=== PATIENT | female | born 1965 | race Caucasian/White ===

== ENCOUNTER 2017-04-27 08:20 | Emergency (ER) | payer OTHER ==
[~2017-04-27] VITALS: Ht 165.1 cm; Wt 70.0 kg
[~2017-04-27 08:20] MED LIST: AVELOX400 MG OR; NAPROSYN500 MG OR; no homemeds
[2017-04-27] MEDS ORDERED: CLINDAMYCIN300 M1 PO (09:16)
[2017-04-27 09:38] VITALS: BP 141/81
== END 2017-04-27 09:42 | disposition home or self-care (01) | DRG 153 ==
LOC: ED 08:20
DX: J06.9 Acute upper respiratory infection, unspecified (principal); J02.9 Acute pharyngitis, unspecified; R09.81 Nasal congestion; R09.89 Other specified symptoms and signs involving the circulatory and respiratory systems; R50.9 Fever, unspecified

== ENCOUNTER 2019-02-12 07:19 | Emergency (ER) | payer BC ==
[~2019-02-12] VITALS: Ht 165.1 cm; Wt 57.0 kg
[~2019-02-12 07:19] MED LIST changes: +CLINDAMYCIN300 M1 PO
[2019-02-12] MEDS ORDERED: ROBITUSSIN AC10 ML PO (08:30)
[2019-02-12 08:32] VITALS: BP 123/82
== END 2019-02-12 08:47 | disposition home or self-care (01) | DRG 153 ==
LOC: ED 07:19
DX: J02.9 Acute pharyngitis, unspecified (principal)

== ENCOUNTER 2020-07-26 | Emergency (ER) | payer OTHER ==
[~2020-07-26] MED LIST changes: +ROBITUSSIN AC10 ML PO
[2020-07-27] MEDS ORDERED: MOTRIN400 MG/TAB PO (00:41)
== END 2020-07-27 01:02 | disposition home or self-care (01) | DRG 563 ==
DX: S93.401A Sprain of unspecified ligament of right ankle, initial encounter (principal); X50.0XXA Overexertion from strenuous movement or load, initial encounter; Y93.89 Activity, other specified; Y92.009 Unspecified place in unspecified non-institutional (private) residence as the place of occurrence of the external cause

== ENCOUNTER 2022-10-03 16:35 | Emergency (ER) | payer BC ==
[~2022-10-03] VITALS: Ht 165.1 cm; Wt 80.2 kg
[~2022-10-03 16:35] MED LIST changes: +MOTRIN400 MG/TAB PO
[2022-10-03 16:47] VITALS: BP 144/85
[2022-10-03 17:30] VITALS: BP 134/67
[2022-10-03 17:45] VITALS: BP 127/69
[2022-10-03 18:00] VITALS: BP 136/70
[2022-10-03 18:15] LABS: URINE BILIRUBIN - DIPSTICK NEGATIVE (NEGATIVE); URINE BLOOD DIPSTICK NEGATIVE (NEGATIVE); URINE COLOR YELLOW; URINE GLUCOSE - DIPSTICK NEGATIVE (NEGATIVE); URINE KETONE NEGATIVE (NEGATIVE); URINE LEUK ESTERASE TRACE (NEGATIVE); URINE PH 6.5 (4.5-8.0); URINE PROTEIN - DIPSTICK NEGATIVE (NEG-TRACE)
[2022-10-03 18:16] LABS: BASO% 0.2 % (0-3); HEMATOCRIT 41.4 % (37.0-47.0); HEMOGLOBIN 13.7 g/dl (12.0-16.0); IMMATURE GRANULOCYTES 0.2 % (0.0-5.0); LYMPH% 22.6 % (15-41); MEAN CELL VOLUME 90.8 fL CALC (80.0-100.0); MEAN CORPUSCULAR HGB CONC 33.1 g/dL CAL (32.0-36.0); MONO% 7.4 % (2-13); NEUT# 5.77 thou/uL (2.00-7.15); NEUT% 67.6 % (42-76); RED BLOOD COUNT 4.56 mill/uL (4.20-5.60); RED CELL DISTRI WIDTH 12.8 % (11.5-15.5)
[2022-10-03 18:16] LABS: URINE NITRITE - DIPSTICK NEGATIVE (Negative)
[2022-10-03 18:26] LABS: ALBUMIN 4.6 g/dL (3.2-5.0); ALKALINE PHOSPHATASE 108 u/l (38-126); ANION GAP 13 (6-22 (CALC)); BUN 16 mg/dL (7-17); BUN/CREATININE RATIO 22 (12-20 (CALC)); CARBON DIOXIDE 28 mmol/l (22-30); CHLORIDE 104 mmol/l (95-108); CREATININE 0.7 mg/dL (0.5-1.0); GFR FOR AFR.AMER. > 60 ML/MIN (>=60 (CALC)); GFR OTHER RACES > 60 ML/MIN (>=60 (CALC)); POTASSIUM 4.5 mmol/l (3.5-5.1); SGOT/AST 25 u/l (14-36); SODIUM 140 mmol/l (137-146); TOTAL PROTEIN 7.4 g/dL (6.3-8.2)
[2022-10-03 18:29] LABS: BILIRUBIN, TOTAL 0.9 mg/dL (0.02-1.3)
[2022-10-03 19:45] VITALS: BP 136/70
== END 2022-10-03 19:45 | disposition left against medical advice (07) | DRG 392 ==
LOC: ED 16:35
PROVIDERS: Family Medicine
DX: R10.2 Pelvic and perineal pain (principal); Z53.29 Procedure and treatment not carried out because of patient's decision for other reasons

== ENCOUNTER 2024-05-06 04:18 | Inpatient (IN) | payer BC ==
[~2024-05-06] VITALS: Ht 165.1 cm; Wt 80.0 kg
[2024-05-06] VITALS (21 sets, daily range): BP systolic 135–187; BP diastolic 72–93
--- NOTE | 2024-05-06 04:23 | NUR ---
patient to room 8 via ems.
[2024-05-06] MEDS ORDERED: MORPHINE SULFATE 4 MG/ML VIAL IV ONE (04:50)
[2024-05-06] MEDS ORDERED: ONDANSETRON HCl 4 MG/2 ML SDV IV ONE (04:50)
[2024-05-06 05:17] LABS: BASO% 0.2 % (0-3); EOS% 0.1 % (0-8); HEMATOCRIT 43.6 % (37.0-47.0); HEMOGLOBIN 14.6 g/dl (12.0-16.0); IMMATURE GRANULOCYTES 0.7 % (0.0-5.0); LYMPH% 4.9 % (15-41); MEAN CELL VOLUME 90.5 fL CALC (80.0-100.0); MEAN CORPUSCULAR HGB 30.3 pG CALC (26.0-32.0); MEAN CORPUSCULAR HGB CONC 33.5 g/dL CAL (32.0-36.0); MONO% 3.9 % (2-13); NEUT# 10.9 thou/uL (2.00-7.15); NEUT% 90.2 % (42-76); RED BLOOD COUNT 4.82 mill/uL (4.20-5.60); RED CELL DISTRI WIDTH 12.8 % (11.5-15.5)
[2024-05-06 05:33] LABS: ALBUMIN 4.8 g/dL (3.2-5.0); CREATININE 0.7 mg/dL (0.5-1.0); POTASSIUM 4.2 mmol/l (3.5-5.1); TOTAL PROTEIN 7.8 g/dL (6.3-8.2)
[2024-05-06 05:34] LABS: BILIRUBIN, TOTAL 1.5 mg/dL (0.02-1.3)
--- NOTE | 2024-05-06 06:09 | NUR ---
EDP NOTIFIED THAT PATIENT STILL REPORTS SHE IS IN PAIN
[2024-05-06] MEDS ORDERED: HYDROmorphone HCL 2 MG/AMP IV ONE (06:15)
--- NOTE | 2024-05-06 07:22 | NUR ---
Reassessment of patient completed. No distress noted.
--- NOTE | 2024-05-06 08:15 | NUR ---
Reassessment of patient completed. No distress noted.
[2024-05-06 09:35] LABS: URINE BILIRUBIN - DIPSTICK Negative (NEGATIVE); URINE BLOOD DIPSTICK Negative (NEGATIVE); URINE GLUCOSE - DIPSTICK Negative (NEGATIVE); URINE KETONE Negative (NEGATIVE); URINE LEUK ESTERASE Trace (NEGATIVE); URINE NITRITE - DIPSTICK Negative (Negative); URINE PH 5.5 (4.5-8.0); URINE PROTEIN - DIPSTICK 30 mg/dL (NEG-TRACE); URINE SPECIFIC GRAVITY 1.015; URINE UROBILINOGEN - DIPSTICK 0.2 E.U./dL (0.2)
[2024-05-06 09:41] LABS: URINE COLOR Yellow
[2024-05-06 09:49] LABS: URINE EPITHELIAL CELLS MODERATE EPI/hpf (0-FEW); URINE MUCUS FEW hpf (NONE-FEW); URINE WBC 0-2 WBC/hpf (0-5)
--- NOTE | 2024-05-06 10:12 | NUR ---
FAMILY REMAINS BEDSIDE WITH PATIENT
[2024-05-06] MEDS ORDERED: MAGNESIUM HYDROXIDE 30 ML UDC PO PRN (10:25)
[2024-05-06] MEDS ORDERED: ACETAMINOPHEN 325 MG/TAB PO PRN (10:25)
[2024-05-06] MEDS ORDERED: SODIUM CHLORIDE 0.9% 1,000 ML IV PRN (10:25)
[2024-05-06] MEDS ORDERED: HYDROmorphone HCL 2 MG/AMP IV PRN (10:30)
[2024-05-06] MEDS ORDERED: ONDANSETRON HCl 4 MG/2 ML SDV IV PRN (10:30)
--- NOTE | 2024-05-06 10:40 | NUR ---
PATIENT ASSISTED TO RESTROOM, AND REQUESTING ADDITION MEDICATION TO EASE ABDOMINAL PAIN.
--- NOTE | 2024-05-06 11:24 | NUR ---
PATIENT STATES SHE IS ABLE TO REST AFTER ADDITIONAL PAIN MEDICATION, REPORTS 0/10 PAIN CURRENTLY
--- NOTE | 2024-05-06 11:55 | NUR ---
PATIENT CARE REPORT COMPLETED WITH NURSE NORTON FOR ROOM 264
[2024-05-06] MEDS ORDERED: DEXTROSE W/ SODIUM CHLORIDE 1,000 ML IV PRN (12:20)
--- NOTE | 2024-05-06 13:00 | NUR ---
NEW ADMIT ARRIVED TO MS UNIT BY WHEELCHAIR. PATIENT A/OX4, NO S/S RESPIRATORY DISTRESS PATIENT ON ROOM AIR, PATIENT C/O 4/10 ABD PAIN. PATIENT LAST BOWEL MOVEMENT 05/05/24, PATIENT WITH POSITIVE BOWEL SOUNDS ALL QUADRANTS. PATIENT HAS VOIDED. PATIENT ABLE TO AMBULATE AND SKIN IS INTACT. PATIENT ORIENTED TO ROOM, STAFF, PLAN OF CARE, ALL CALL LIGHT SYSTEM.
[2024-05-06] MEDS ORDERED: Pantoprazole Sodium 40 MG VIAL (Protonix) IV SCH (13:30)
--- NOTE | 2024-05-06 20:00 | NUR ---
PT RESTING ON BED WITH HEAD OF THE BED SLIGHTLY ELEVATED. ALERT AND ORIENTED X3. PT REQUESTED PAIN MEDICATION FOR HER ABDOMEN 4/10 ON PAIN SCALE AND NAUSEA MED WELL. RESPS ARE EVEN AND UNLABORED WITH 02 VIA NC AT 2LPM. NO DISTRESS NOTED AT THIS MOMENT. IVF D5 1/4 INFUSING AT 125 CC AT THIS TIME VIA LEFT AC. CALL LIGHT IN REACH AND SAFETY PRECAUTIONS ON PLACE.
[2024-05-06] MEDS ORDERED: ENOXAPARIN SODIUM 40 MG/0.4 ML SYR SC SCH (21:00)
--- NOTE | 2024-05-07 00:10 | NUR ---
PT ASSISTED TO RESTROOM AFTER RETURNING TO BED PT STATED HAVING NAUSEA. NURSE PROVIDED PT WITH ZOFRAN AND GAVE ABX THRU HER IV WORKING PROPERLY. CALL LIGHT WITHIN REACH. PLAN OF CARE ONGOING.
--- NOTE | 2024-05-07 04:07 | NUR ---
PATIENT RESITNG ON BED WITH EYES CLOSED. BRETAHING IS EVEN AND UNLABORED AT THIS TIME. O2 VIA NC AT 2LPM. NO DSITRESS NOTED. WILL CONTINUE TO MONITOR. CALL LIGHT IN REACH
[2024-05-07 04:20] VITALS: BP 130/65
[2024-05-07 06:21] LABS: BASO% 0.1 % (0-3); HEMATOCRIT 41.1 % (37.0-47.0); HEMOGLOBIN 13.9 g/dl (12.0-16.0); IMMATURE GRANULOCYTES 0.3 % (0.0-5.0); LYMPH% 9.3 % (15-41); MEAN CELL VOLUME 92.2 fL CALC (80.0-100.0); MEAN CORPUSCULAR HGB 31.2 pG CALC (26.0-32.0); MEAN CORPUSCULAR HGB CONC 33.8 g/dL CAL (32.0-36.0); MONO% 4.8 % (2-13); NEUT# 12.23 thou/uL (2.00-7.15); NEUT% 85.5 % (42-76); RED BLOOD COUNT 4.46 mill/uL (4.20-5.60); RED CELL DISTRI WIDTH 13.1 % (11.5-15.5)
[2024-05-07 06:22] LABS: BILIRUBIN, TOTAL 1.8 mg/dL (0.02-1.3); CHOLESTEROL HDL RATIO 3.9 (<4.4 (CALC)); CREATININE 0.6 mg/dL (0.5-1.0); MAGNESIUM 1.6 mg/dL (1.6-2.3)
[2024-05-07 06:25] LABS: ALBUMIN 3.5 g/dL (3.2-5.0)
[2024-05-07 07:13] VITALS: BP 113/68
--- NOTE | 2024-05-07 07:36 | NUR ---
PT IS AOX4, RESPIRATIONS ARE EVEN AND UNLABORED ON ROOM AIR WITH O2 AT 94%, BOWEL SOUNDS ARE HYPOACTIVE IN ALL 4 QUADRANTS, PEDAL PULSES ARE PALPABLE TO TOUCH, PAIN REPORTS "BETTER" AFTER RECIEVING PRN PAIN MEDS. DISCUSSED NPO ORDER WITH PT DUE TO PT DRINKING WATER.
[2024-05-07] MEDS ORDERED: LACTATED RINGER'S 1,000 ML IV SCH (10:00)
--- NOTE | 2024-05-07 11:54 | NUR ---
TYLENOL GIVEN FOR HEADACHE PAIN.
[2024-05-07 16:50] VITALS: BP 118/67
[2024-05-07 19:11] VITALS: BP 122/60
--- NOTE | 2024-05-07 19:40 | NUR ---
PT RESTING ON BED IN SUPINE POSITION. RESPS ARE EVEN AND UNLABORED- NO DITRESS NOTED AT THIS TIME. REPORTS MILD PAIN. ABDOMEN IS SOFT AND DISTENDED AT THIS TIME. BOWEL SOUNDS ARE ACTIVE IN ALL FOUR QUADRANTS. IVF LR INFUSING AT 150 CC VIA LAC. DENIES ANY NEEDS AT THIS TIME. CALL LIGHT IN REACH.
--- NOTE | 2024-05-08 | NUR ---
PT RESTING ON BED WITH EYES CLOSED IN SUPINE POSITION. RESPS EVEN AND UNLABORED. CALL LIGHT IN REACH
--- NOTE | 2024-05-08 03:29 | NUR ---
PT REQUESTED PAIN MEDICATION AT THIS TIME. DILAUDID WAS GIVEN AROUND 0040- PT STATED IF SHE CAN HAVE SOME TYLENOL- MEDICATED WITH TYLENOL 650 PO AND ZOFRAM FOR NAUSEA VIA IV. TARSHA BORJAS.
--- NOTE | 2024-05-08 04:40 | NUR ---
PATIENT RESTING IN BED WITH THE HEAD OF THE BED SLIGHTLY ELEVATED. PT STATED HER PAIN IS LIKE WHE SHE GOT TO THE HOSPITAL. MEDICATED WITH DILAUDID 1MG VIA IV, PROVIDED WITH HOT THERMAL BAG. IVF REMAINS INFUSING. CALL LIGHT IN REACH. WILL CONTINUE TO MONITOR
[2024-05-08 05:39] VITALS: BP 118/65
[2024-05-08 06:02] LABS: BASO% 0.1 % (0-3); EOS% 0.1 % (0-8); HEMATOCRIT 38.4 % (37.0-47.0); HEMOGLOBIN 12.6 g/dl (12.0-16.0); IMMATURE GRANULOCYTES 0.6 % (0.0-5.0); LYMPH% 7.9 % (15-41); MEAN CELL VOLUME 93.9 fL CALC (80.0-100.0); MEAN CORPUSCULAR HGB 30.8 pG CALC (26.0-32.0); MEAN CORPUSCULAR HGB CONC 32.8 g/dL CAL (32.0-36.0); MONO% 5.2 % (2-13); NEUT# 11.66 thou/uL (2.00-7.15); NEUT% 86.1 % (42-76); RED BLOOD COUNT 4.09 mill/uL (4.20-5.60); RED CELL DISTRI WIDTH 13.1 % (11.5-15.5)
[2024-05-08 06:10] LABS: ALBUMIN 2.9 g/dL (3.2-5.0); BILIRUBIN, TOTAL 2.4 mg/dL (0.02-1.3); CREATININE 0.7 mg/dL (0.5-1.0); MAGNESIUM 1.8 mg/dL (1.6-2.3); POTASSIUM 3.9 mmol/l (3.5-5.1); TOTAL PROTEIN 5.4 g/dL (6.3-8.2)
[2024-05-08 07:26] VITALS: BP 149/78
[2024-05-08 07:30] LABS: AMYLASE 354 u/l (30-110); LIPASE 1119 u/l (23-300)
--- NOTE | 2024-05-08 07:38 | NUR ---
PT AOX4, RESPIRATIONS ARE EVEN AND UNLABORED, LUNGS ARE CLEAR, BOWEL SOUND ARE HYPOACTIVE IN THE BILATERAL UPPER BOWELS, HYPOACTIVE IN THE LEFT LOWER ABD. PEDAL PULSES ARE PALPABLE TOUCH, PT REPORTS A "CRAMPING" PAIN IN ABD AT A 10 ON A 0-10 PAIN SCALE, ALSO STATES SHE FEELS NAUSIOUS. NOTIFIED HOWARD MASON.
[2024-05-08] MEDS ORDERED: HYDROmorphone HCL 2 MG/AMP IV PRN (07:50)
[2024-05-08 08:41] VITALS: BP 149/78
[2024-05-08] MEDS ORDERED: LACTATED RINGER'S 1,000 ML IV PRN (09:45)
[2024-05-08] MEDS ORDERED: KETOROLAC TROMETHAMINE 15 MG/ML SDV IV SCH (12:00)
--- NOTE | 2024-05-08 15:27 | NUR ---
RECHECKED PT'S O2 WHEN TECH REPORTED O2 AT 84%, PLACED PT BACK ON 2L O2 AND RECHECKED WITH DIFFERENT MACKING AND PT'S OXYGEB IS AT 96%.
[2024-05-08 16:04] VITALS: BP 140/75
--- NOTE | 2024-05-08 18:33 | NUR ---
CONSENT SIGNED AND IN CHART, COVID SWAB SENT TO LAB.
[2024-05-08 18:38] VITALS: BP 136/71
[2024-05-08 20:03] VITALS: BP 136/71
--- NOTE | 2024-05-08 20:15 | NUR ---
PT RESTING IN BED STATING HAVING ABD PAIN 5/10. NURSE PROVIDED PAIN MEDICATION IV DILAUDID. IV FLUSHED WORKING PROPERLY. CALL LIGHT WITHIN REACH. PLAN OF CARE ONGOING.
[2024-05-09] VITALS (7 sets, daily range): BP systolic 128–159; BP diastolic 59–74
--- NOTE | 2024-05-09 00:15 | NUR ---
PT RESTING IN BED STATING HAVING PAIN 12/04 NURSE PROVIDED IV DILAUDID. CALL LIGHT WITHIN REACH. PLAN OF CARE ONGOING.
--- NOTE | 2024-05-09 03:50 | NUR ---
PT SLEEPING NO DISTRESS NOTED.
[2024-05-09 06:04] LABS: BASO% 0.2 % (0-3); HEMATOCRIT 36.9 % (37.0-47.0); HEMOGLOBIN 12.2 g/dl (12.0-16.0); IMMATURE GRANULOCYTES 0.5 % (0.0-5.0); LYMPH% 10.1 % (15-41); MEAN CELL VOLUME 95.6 fL CALC (80.0-100.0); MEAN CORPUSCULAR HGB 31.6 pG CALC (26.0-32.0); MEAN CORPUSCULAR HGB CONC 33.1 g/dL CAL (32.0-36.0); MONO% 5.9 % (2-13); NEUT# 8.01 thou/uL (2.00-7.15); NEUT% 82.3 % (42-76); RED BLOOD COUNT 3.86 mill/uL (4.20-5.60)
[2024-05-09 06:16] LABS: CHOLESTEROL HDL RATIO 3.8 (<4.4 (CALC)); MAGNESIUM 2.2 mg/dL (1.6-2.3)
--- NOTE | 2024-05-09 07:00 | NUR ---
SHIFT CHANGE REPORT, PT AWAKE ALERT AND ORIENTED RESTING IN BED, C/O CRAMPING ABD PAIN @ 6/10, CONCERN ADDRESSED, IVF INFUSING, CALL RAMIREZ IN REACH AND BED LOCKED IN LOEST POSITION.
[2024-05-09] MEDS ORDERED: ROCURONIUM BROMIDE 10 MG/ML 5ML VIAL IV ONE (07:50)
[2024-05-09] MEDS ORDERED: PROPOFOL 200 MG/20 ML VIAL IV ONE (07:50)
[2024-05-09] MEDS ORDERED: LIDOCAINE HCL 2% 2ML SDV IV ONE (07:50)
[2024-05-09] MEDS ORDERED: SUGAMMADEX SODIUM 200 MG/2 ML SDV IV ONE (07:50)
[2024-05-09] MEDS ORDERED: SUCCINYLCHOLINE CHLORIDE 20 MG/ML 10ML VIAL IV ONE (07:50)
[2024-05-09 08:04] LABS: ALBUMIN 2.7 g/dL (3.2-5.0); CREATININE 0.5 mg/dL (0.5-1.0); POTASSIUM 3.9 mmol/l (3.5-5.1); TOTAL PROTEIN 5.2 g/dL (6.3-8.2)
[2024-05-09 08:19] LABS: BILIRUBIN, TOTAL 1.3 mg/dL (0.02-1.3)
--- NOTE | 2024-05-09 11:32 | NUR ---
OR STAFF HERE RECEIVING PT AND TRANSFERRING OFF UNIT VIA STRETCHER.
[2024-05-09] MEDS ORDERED: LACTATED RINGER'S 1,000 ML IV ONE (11:46)
[2024-05-09] MEDS ORDERED: FAMOTIDINE 10MG/ML 2ML SDV IV ONE (11:55)
[2024-05-09] MEDS ORDERED: HYDROmorphone HCL 2 MG/AMP ONE (11:59)
[2024-05-09] MEDS ORDERED: ISOVUE-300 (Iopamidol) 100 ML SDV IV ONE (12:13)
[2024-05-09] MEDS ORDERED: GLUCAGON HCL (Rdna) 1 MG VIAL ONE (12:13)
[2024-05-09] MEDS ORDERED: LIDOcaine HCl 1% (Local Anesth.) 20 ML VIAL ONE (12:15)
[2024-05-09] MEDS ORDERED: oxyCODONE 5MG/ ACETAMINOPHEN 325MG TAB PO PRN (13:40)
[2024-05-09] MEDS ORDERED: ACETAMINOPHEN 100 ML IV ONE (14:15)
--- NOTE | 2024-05-09 15:11 | NUR ---
REPORT RECEIVED FROM LLOYD IN PACU, PT JUST ARRIVED ON UNIT TRANSPORTED VIA STRETCHER AND FOLLOWED INSTRUCTIONS TO TRANSFER TO BED. GROGGY AND MILDLY CONFUSED, C/O RIGHT-SIDED PAIN AT THIS TIME, IVF INFUSING. PUNCTURES X 5 WELL APPROXIMATED WITH DERMABOND TO ABD, ASSISTED TO BSC AND URINATED 150 ML URINE, VITAL SIGNS BEING MONITORED AND RECORDED.
--- NOTE | 2024-05-09 20:50 | NUR ---
PT RESTING IN BED NO DISTRESS NOTED ON ASSESSMENT. ABD HAS FIVE SURGICAL INCISIONS WITH DERMABOND SLIGHTLY RED. BOWEL SOUNDS HYPOACTIVE. PT STATED HAVING ABD PAIN 4/10. NURSE WILL PROVIDE PAIN MEDICATION. PT ASSISTED TO BSC WITH MINIMAL HELP. CALL LIGHT WITHIN REACH. IV FLUID INFUSION GOING. PLAN OF CARE ONGOING.
[2024-05-10] MEDS ORDERED: SIMETHICONE 20 MG/0.3 ML PO PRN (00:40)
[2024-05-10] MEDS ORDERED: SIMETHICONE 20 MG/0.3 ML PO ONE (00:57)
--- NOTE | 2024-05-10 04:00 | NUR ---
PT SLEEPING NO DISTRESS NOTED.
[2024-05-10 05:38] VITALS: BP 137/59
--- NOTE | 2024-05-10 06:00 | NUR ---
PT STATED HAVING PAIN 1/10 SCHEDULED TORADOL IV GIVEN.
[2024-05-10 06:59] LABS: EOS% 1.7 % (0-8); HEMATOCRIT 35.1 % (37.0-47.0); HEMOGLOBIN 11.6 g/dl (12.0-16.0); IMMATURE GRANULOCYTES 1.1 % (0.0-5.0); MEAN CELL VOLUME 93.6 fL CALC (80.0-100.0); MEAN CORPUSCULAR HGB 30.9 pG CALC (26.0-32.0); MONO% 8.2 % (2-13); NEUT# 5.62 thou/uL (2.00-7.15); RED BLOOD COUNT 3.75 mill/uL (4.20-5.60); RED CELL DISTRI WIDTH 13.1 % (11.5-15.5)
--- NOTE | 2024-05-10 07:39 | NUR ---
PT IS AOX4, RESPIRATIONS ARE EVEN AND UNLABORED ON ROOM AIR, LUNGS ARE CLEAR, BOWEL SOUNDS ARE HYPOACTIVE THROUGHOUT, 5 LAP SITES ARE CLEAN, DRY, INTACT, PEDAL PULSES ARE PALPABLE TO TOUCH, PT REPORTS PAIN "MUCH BETTER" A 1 OR 2.
[2024-05-10 07:51] LABS: AMYLASE 68 u/l (30-110); LIPASE 271 u/l (23-300)
[2024-05-10 07:52] LABS: ALBUMIN 2.5 g/dL (3.2-5.0); BILIRUBIN, TOTAL 0.8 mg/dL (0.02-1.3); CREATININE 0.5 mg/dL (0.5-1.0); MAGNESIUM 2.3 mg/dL (1.6-2.3); POTASSIUM 3.5 mmol/l (3.5-5.1); TOTAL PROTEIN 4.9 g/dL (6.3-8.2)
[2024-05-10 08:02] VITALS: BP 131/58
[2024-05-10] MEDS ORDERED: LORTAB 5/3255 MG PO (11:12)
--- NOTE | 2024-05-11 11:38 | NUR ---
Discharge follow up call completed 05/11/24. Patient states she is doing :okay" since discharge. She has pain medication prescribed at discharge and is taking as needed. Patient intends to contact PCP today to schedule a follow up appointment. No needs or concerns verbalized by patient at this time.
[2024-05-12] MEDS ORDERED: GOLYTELY PO (10:45)
== END 2024-05-10 14:09 | disposition home or self-care (01) | DRG 418 ==
LOC: ED 04:18 → ED-I 07:30 → ED 07:52 → MS2 07:53
PROVIDERS: Emergency Medicine; Internal Medicine; Nurse Practitioner Family; ADMIT Internal Medicine; ATTEND Internal Medicine
PROC: 0FT44ZZ Resection of Gallbladder, Percutaneous Endoscopic Approach (ICD-10-PCS; principal; 2024-05-09)
PROC: BF001ZZ Plain Radiography of Bile Ducts using Low Osmolar Contrast (ICD-10-PCS; 2024-05-09)
DX: K85.10 Biliary acute pancreatitis without necrosis or infection (principal); E87.1 Hypo-osmolality and hyponatremia; K80.20 Calculus of gallbladder without cholecystitis without obstruction; Z90.721 Acquired absence of ovaries, unilateral
CPT/HCPCS: J0131; J0744; J1171; J1610; J1650; J1836; J1885; J2405; J2470; Q9966; Q9967

== ENCOUNTER 2024-06-15 17:44 | Emergency (ER) | payer BC ==
[~2024-06-15] VITALS: Ht 165.1 cm; Wt 74.8 kg
[~2024-06-15 17:44] MED LIST changes: +GOLYTELY PO; +LORTAB 5/3255 MG PO
[2024-06-15 17:48] VITALS: BP 138/85
[2024-06-15 18:00] VITALS: BP 138/61
[2024-06-15 18:22] LABS: BASO% 0.3 % (0-3); EOS% 0.7 % (0-8); IMMATURE GRANULOCYTES 0.1 % (0.0-5.0); LYMPH% 19.3 % (15-41); MEAN CELL VOLUME 90.7 fL CALC (80.0-100.0); MEAN CORPUSCULAR HGB 29.9 pG CALC (26.0-32.0); MEAN CORPUSCULAR HGB CONC 32.9 g/dL CAL (32.0-36.0); MONO% 6.7 % (2-13); NEUT# 7.81 thou/uL (2.00-7.15); NEUT% 72.9 % (42-76); RED BLOOD COUNT 4.62 mill/uL (4.20-5.60); RED CELL DISTRI WIDTH 13.1 % (11.5-15.5)
[2024-06-15 18:27] LABS: HEMATOCRIT 41.9 % (37.0-47.0); HEMOGLOBIN 13.8 g/dl (12.0-16.0)
[2024-06-15 18:30] VITALS: BP 128/68
[2024-06-15 18:36] LABS: CREATININE 0.6 mg/dL (0.5-1.0); POTASSIUM 3.7 mmol/l (3.5-5.1)
[2024-06-15 23:08] VITALS: BP 128/68
== END 2024-06-15 23:08 | DRG 153 ==
LOC: ED 17:44
PROVIDERS: Family Medicine
DX: J36 Peritonsillar abscess (principal); Z20.822 Contact with and (suspected) exposure to COVID-19; R21 Rash and other nonspecific skin eruption; Z91.048 Other nonmedicinal substance allergy status
CPT/HCPCS: Q9967